=== PATIENT | male | born 1930 | race Caucasian/White ===

== ENCOUNTER 2016-12-08 14:00 | Inpatient (IN) ==
[2016-12-08] MEDS ORDERED: ONDANSETRON ODT 4 MG TABLET PO STA (14:39)
[2016-12-08 15:16] LABS: Basophils % 0.1 % (0.0-0.8); Hematocrit 50.2 VOL% (42.0-52.0); Hemoglobin 17.5 GM/DL (14.0-18.0); Immature Granulocytes % 0.7 %; Immature Granulocytes Absolute 0.17 #; Lymphocytes # 1.1 10*3/uL (1.4-4.0); Lymphocytes % 4.9 % (21.2-54.2); Mean Corpuscular HGB Conc 34.9 GM/DL (32-36); Mean Corpuscular Hemoglobin 34 PG (27-34); Mean Corpuscular Volume 97.7 FL (87-102); Mean Platelet Volume 11.1 FL (9.6-12.0); Monocytes % 4.2 % (1.7-12.7); Neutrophils % 90.1 % (38.7-73.9); Platelet Count 176 T/CUMM (130-400); Red Blood Count 5.14 MC/CUMM (3.8-5.5); Red Cell Distribution Width 13.7 % (9.3-17.3); White Blood Count 23.3 T/CUMM (4-12)
[2016-12-08] MEDS ORDERED: ONDANSETRON ODT 4 MG TABLET PO ONE (15:18)
[2016-12-08 15:37] LABS: Albumin 4.3 G/DL (3.4-5.0); Bilirubin,Total 1.1 MG/DL (0.2-1.0); Calcium 9.1 MG/DL (8.5-10.1); Osmolality,Calculated 293.8 MOS/KG (273-304); Potassium 4.2 MMOL/L (3.5-5.1); Total Protein 7.1 G/DL (6.4-8.3)
--- NOTE | 2016-12-08 15:38 | CT Report ---
History: Abdominal loading and vomiting Date: 12/08/2016 Study: CT abdomen and pelvis with IV contrast Comparison exam: July 18, 2014 Technique: Spiral CT sections were obtained from the lung bases to the pubic symphysis following 100 mL Omnipaque [address] exam was performed using one or more of the following dose reduction techniques: Automated exposure control, adjustment of the mA and/or kV according to patient size, or use of iterative reconstruction technique. CT abdomen: The partially visualized lung bases are clear. There is a small calcified granuloma in the right lower lobe. There is no pleural or pericardial effusion. There is disproportionate small bowel dilatation compatible with partial small bowel obstruction. The precise etiology for the small bowel obstruction is not seen, though the transition zone is in the right lower abdomen, likely in the jejunum. There is diverticulosis. The appendix is normal. There is some minimal diffuse fatty infiltration of the liver. The bile ducts, spleen, pancreas, and adrenal glands are unremarkable. There is bilateral renal excretion without hydronephrosis. There is no enhancing renal mass. The gallbladder is contracted. There is no aneurysm of the moderately calcified abdominal aorta. There is no obvious lymphadenopathy by short axis diameter criteria. CT pelvis: There is no pelvic mass or abnormal pelvic fluid collection. There is no pelvic lymphadenopathy by short axis diameter criteria. Impression: Partial small bowel obstruction PROCEDURE INTERPRETED AT [facility] DEPARTMENT OF RADIOLOGY Final Report Signed by: Dr. Princess De Los Santos
[2016-12-08] MEDS ORDERED: SODIUM CHLORIDE 0.9% 500 ML IV STA (15:46)
--- NOTE | 2016-12-08 15:48 | Emergency Department Note ---
Frandy Prater Hilary, am scribing for, and in the presence of, Armando Velasco MD 14:38. Rod Prater Phillip K, MD, personally performed the services described in this documentation, ascribed by Shasha Wise in my presence, and it is both accurate and complete 548 . Arrival - Arrival Chief Complaint: Nausea/Vomiting/Diarrhea Stated Complaint: n/v,possible dehydration sent by Dr ED Nursing Triage Note: Pt c/o nausea, vomiting, and abd distention since last night. States BM this am was norm. Mode of Arrival: Ambulatory Limitations: No Limitations Source: Patient, RN Notes Reviewed - History of Present Illness HPI Narrative: Pt is a 86 y/o female presenting to the ED with c/o nausea, vomiting and abdominal distention which onset yesterday. Pt confirms nausea, vomiting, and distended abdomen but denies abnormal stool, fever. Pt has a PMHx of HTN. No other complaints or problems stated in the ED. No other complaints or problems stated in the ED. Onset (ago): hour(s) Allergies/Adverse Reactions: Allergies Allergy/AdvReac Type Severity Reaction Status Date / Time No Known Allergies Allergy Verified 12/08/16 14:07 Review of System - Review of System 12 point system: reviewed and no additional remarkable complaints except as stated - Review of System Constitutional: Absent: fever Gastrointestinal: Present: nausea, vomiting. Absent: abdominal pain Medical,Surgical,& Family Hx - Medical History Cardio: History of: Hypertension - Social History Smoking Status: Never smoker Exam Vital Signs: Vital Signs Temperature 98.8 F 12/08/16 15:33 Pulse Rate 87 12/08/16 15:33 Respiratory Rate 20 12/08/16 15:33 Blood Pressure 151/79 12/08/16 15:33 O2 Sat by Pulse Oximetry 95 12/08/16 15:33 - General General appearance: alert, in no apparent distress - Head Head exam: Present: atraumatic, normocephalic - Eye Eye exam: Present: normal appearance, PERRL, EOMI - ENT ENT exam: Present: mucous membranes moist, TM's normal bilaterally - Neck Neck exam: Present: full ROM, trachea midline. Absent: tenderness - Chest Chest inspection: Present: symmetric chest wall rise. Absent: tenderness - Respiratory Respiratory exam: Present: normal lung sounds bilaterally. Absent: respiratory distress - Cardiovascular Cardiovascular exam: Present: regular rate, normal rhythm, normal heart sounds. Absent: murmur, rubs, gallop - Abdominal Exam Abdominal exam: Present: soft, distention, normal bowel sounds. Absent: tenderness - Extremities Exam Extremities exam: Present: full ROM. Absent: tenderness - Back Exam Back exam: Present: full ROM. Absent: tenderness - Neurological Exam Neurological exam: Present: alert, oriented X3, CN II-XII intact. Absent: motor sensory deficit - Psychiatric Psychiatric exam: Present: normal affect, normal mood - Skin Skin exam: Present: warm, dry, intact, normal color. Absent: rash Course Course Narrative: Patient discussed with Dr. Brito who will evaluate in the ED. Results - Labs CBC & BMP: 12/08/16 15:02 12/08/16 15:02 Lab Results: I have reviewed the patients labs - Diagnostic Findings Procedure: CT Abdomen and Pelvis: report reviewed by me (Partial small bowel obstruction) Disposition Clinical Impression: Partial small bowel obstruction Case discussed with: patient, patient's family Disposition: Still a Patient Condition: Guarded Additional Instructions: Admit to Dr. Brito
[2016-12-08] MEDS ORDERED: LACTATED RINGERS 1,000 ML IV ONE (16:40)
--- NOTE | 2016-12-08 16:45 | General Surg History&Physical ---
Assessment and Plan (1) Partial small bowel obstruction Status: Acute Assessment and plan: It is unclear whether this patient has some sort of segmental ileus or a partial small bowel obstruction. There is no discrete transition point. There are no concerning features of the CT scan itself. The patient's abdomen is not very distended and he does have some hypoactive bowel sounds. He is not tender at all. His white blood cell count is 23,000 which is concerning but he is completely stable and has no indications for acute operative intervention tonight. This is concerning if this is a small bowel obstruction because this patient has never had abdominal surgery and may need to have a laparoscopy to reveal the underlying cause of this, as scar tissue is not as likely with no history of surgery. For now I am not totally convinced this is a bowel obstruction and we will watch him with an NG tube because of a large amount of vomiting is having and he is actually still nauseated in the ER. He will be resuscitated NG tube in place. We will get a urinalysis because of his high white count to ensure that a urinary tract infection is not resulting in a ileus pattern. If there is any question in the morning after an additional abdominal x-ray we will get a small bowel series to further evaluate with oral contrast. Current Visit: Yes History of Present Illness Chief complaint: Small bowel obstruction versus ileus History of present illness: Mr. Scanlon is a 86 year old male with no past surgical history and a past medical history of hypertension who presents to the ER with nausea and vomiting with some mild abdominal pain that began earlier today. Patient has never had problems like this before. He came to the ER for evaluation. He has never had any abdominal surgery. He has had colonoscopy by Dr. Reid which showed no malignancy but he did have pandiverticulosis. The patient denies prior episodes of diverticulitis. The patient started having nausea and vomiting today and threw up multiple times dark green bilious appearing fluid. He is not having diarrhea. He had a small bowel movement this morning but has not passed gas as much as usual. He denies any other recent illness. Allergies Allergy/AdvReac Type Severity Reaction Status Date / Time No Known Allergies Allergy Verified 12/08/16 14:07 Medical,Surgical,& Family Hx - Medical History Cardio: History of: Hypertension - Social History Smoking Status: Never smoker Exam - Constitutional Vitals: Period Temp Pulse Resp BP Sys/Humphreys Pulse Ox Last 24 Hr 98.5 F-98.8 F 87-89 18-20 124-151/79-94 95-96 General appearance: normal weight, no acute distress - Head Head exam: Present: normal inspection, normocephalic - Eye Eye exam: Present: EOMI Pupils: Present: DEXTER - ENT ENT exam: Present: normal exam Mouth exam: Present: normal external inspection, normal voice - Neck Neck exam: Present: normal inspection, trachea midline - Respiratory Respiratory exam: Present: clear to auscultation bilaterally. Absent: accessory muscle use, chest wall tenderness - Cardiovascular Cardiovascular exam: Present: RRR. Absent: systolic murmur, tachycardia - GI/Abdominal GI/Abdominal exam: Present: hypoactive bowel sounds, soft. Absent: distended, tenderness, rebound - Extremities Exam Extremities exam: Present: normal inspection, normal capillary refill - Back Exam Back exam: Present: normal inspection - Neurological Exam Neurological exam: Present: alert, oriented X3 Speech: Present: normal - Skin Skin exam: Present: normal color, warm - Constitutional Constitutional: Present: as per HPI - EENT Nose, mouth and throat: Present: as per HPI - Cardiovascular Cardiovascular: Present: as per HPI - Respiratory Respiratory: Present: as per HPI - Gastrointestinal Gastrointestinal: Present: as per HPI - Genitourinary Genitourinary: Present: as per HPI - Musculoskeletal Musculoskeletal: Present: as per HPI - Neurological Neurological: Present: as per HPI - Endocrine Endocrine: Present: as per HPI Hematologic/Lymphatic: Present: as per HPI Results - Labs CBC & BMP: 12/08/16 15:02 12/08/16 15:02 - Diagnostic Findings Procedure: CT Abdomen and Pelvis: image reviewed by me, report reviewed by me ( There is dilation of the stomach and proximal intestine and decompression of the distal bowel. There is some air and stool in the colon especially in the right colon. There is diverticulosis. There is no evidence of malignancy.)
--- NOTE | 2016-12-08 17:53 | XRay Report ---
XR chest 1V Indication: NG tube placement. Comparison: None. Technique: Portable AP chest was performed. Findings: NG tube terminates just within the stomach. The last sidehole lies adjacent to the GE junction. Impression: 1. NG tube placement as detailed. 12/08/2016 5:45 PM PROCEDURE INTERPRETED AT [facility] DEPARTMENT OF RADIOLOGY Final Report Signed by: Dr. Troy Gale
[2016-12-08] MEDS ORDERED: ONDANSETRON 4 MG/2 ML VIAL IV PRN (18:59)
[2016-12-08] MEDS ORDERED: HYDROmorphone 2 MG/1 ML VIAL IV PRN (18:59)
[2016-12-08] MEDS ORDERED: PROMETHAZINE 25 MG/1 ML VIAL IM PRN (18:59)
[2016-12-08 19:04] LABS: Eosinophils 1 % (0-10); Lymphocytes 4 % (20-55); Platelet Estimate Normal; Segmented Neutrophils 93 % (50-85); Total Cells Counted 100
[2016-12-08] MEDS: LACTATED RINGERS 1,000 ML IV SCH (20:56)
[2016-12-09] MEDS: LACTATED RINGERS 1,000 ML IV SCH (06:29)
[2016-12-09 08:15] LABS: Basophils % 0.3 % (0.0-0.8); Eosinophils # 0.1 10*3/uL (0.0-0.87); Eosinophils % 0.4 % (0.00-10.9); Hematocrit 43.3 VOL% (42.0-52.0); Hemoglobin 14.8 GM/DL (14.0-18.0); Immature Granulocytes % 0.8 %; Immature Granulocytes Absolute 0.11 #; Lymphocytes # 1.9 10*3/uL (1.4-4.0); Lymphocytes % 13.6 % (21.2-54.2); Mean Corpuscular HGB Conc 34.2 GM/DL (32-36); Mean Corpuscular Hemoglobin 34 PG (27-34); Mean Corpuscular Volume 98.2 FL (87-102); Mean Platelet Volume 10.8 FL (9.6-12.0); Monocytes # 0.8 10*3/uL (0.11-0.8); Monocytes % 5.5 % (1.7-12.7); Neutrophils % 79.4 % (38.7-73.9); Platelet Count 140 T/CUMM (130-400); Red Blood Count 4.41 MC/CUMM (3.8-5.5); Red Cell Distribution Width 13.4 % (9.3-17.3); White Blood Count 13.8 T/CUMM (4-12)
[2016-12-09 08:39] LABS: Calcium 7.9 MG/DL (8.5-10.1)
[2016-12-09 08:40] LABS: Osmolality,Calculated 287.8 MOS/KG (273-304); Potassium 3.4 MMOL/L (3.5-5.1)
[2016-12-09] MEDS: PANTOPRAZOLE 40 MG VIAL IV SCH (08:48)
[2016-12-09] MEDS ORDERED: traMADol 50 MG TABLET PO PRN ×2 (09:34)
--- NOTE | 2016-12-09 09:37 | General Surgery Progress Note ---
Assessment and Plan (1) Partial small bowel obstruction Status: Acute Assessment and plan: The patient is passing gas. I am not completely convinced he has a bowel obstruction but we will get a small bowel series to further evaluate. Will use Gastrografin for both diagnostic and therapeutic effects. Continue NG tube for now. Current Visit: Yes Subjective Patient reports: Present: no new complaints, feels better, flatus, no bowel movement, afebrile Narrative: The patient had a low-grade temperature overnight. His urinalysis was not done. He is passing gas but has not had a bowel movement yet. He has minimal NG tube output. Exam - Constitutional Vitals: Period Temp Pulse Resp BP Sys/Humphreys Pulse Ox Last 24 Hr 97.9 F-100.1 F 82-90 16-20 124-152/78-94 93-97 General appearance: normal weight, no acute distress - Head Head exam: Present: normal inspection, normocephalic - Eye Eye exam: Present: EOMI Pupils: Present: DEXTER - ENT ENT exam: Present: normal exam Mouth exam: Present: normal external inspection, normal voice - Neck Neck exam: Present: normal inspection, trachea midline - Respiratory Respiratory exam: Present: clear to auscultation bilaterally. Absent: accessory muscle use, chest wall tenderness - Cardiovascular Cardiovascular exam: Present: RRR. Absent: systolic murmur, tachycardia - GI/Abdominal GI/Abdominal exam: Present: hypoactive bowel sounds, soft. Absent: distended, tenderness, rebound - Extremities Exam Extremities exam: Present: normal inspection, normal capillary refill - Back Exam Back exam: Present: normal inspection - Neurological Exam Neurological exam: Present: alert, oriented X3 Speech: Present: normal - Skin Skin exam: Present: normal color, warm Results - Labs CBC & BMP: 12/09/16 08:06 12/09/16 08:06 Specialty Discharge - Follow Up or Referrals Follow up with: Ruddy Brito MD [Physician] -
[2016-12-09] MEDS ORDERED: CYANOCOBALAMIN 1000 MCG/1 ML VIAL IM SCH (10:00)
--- NOTE | 2016-12-09 11:51 | Fluoroscopy Report ---
Exam: FL small bowel series Date: 12/09/2016 7:28 AM Indication: Small bowel obstruction Comparison: Abdomen pelvis CT scan 12/08/2016 Findings: Curtain Supervisor image was obtained with 11 images with 1 minute of fluoroscopy time. Contrast Gastrografin was administered through a tube in the stomach. Images were obtained with spot images. The examination reveals passage of contrast into the stomach in the small intestine with some slight dilated loops of bowel present. No obvious obstruction present of the small intestine with contrast passing into the colon. Moderate amount of fecal debris is present in the rectal ampulla. Impression: 1. No definite bowel obstruction present. 2. Mild constipation obstipation was moderate stool in the rectal ampulla. PROCEDURE INTERPRETED AT [facility] DEPARTMENT OF RADIOLOGY Final Report Signed by: Dr. Lan Gomez
[2016-12-09] MEDS: DEXT 5% NACL 0.45% KCL 40 MEQ 40 MEQ/1,000 ML BAG IV SCH (12:15)
[2016-12-09] MEDS: ENOXAPARIN 40 MG/0.4 ML SYRINGE SUBCUT SCH (12:16)
[2016-12-09] MEDS: POTASSIUM CHLORIDE RIDER 10 MEQ in PREMIX 1 EACH IV SCH ×4 (12:16→17:19)
[2016-12-09] MEDS: OMEGA 3 ACID ETHYL ESTERS 1 GM CAPSULE PO SCH ×2 (12:16→21:50)
[2016-12-09] MEDS: CHOLECALCIFEROL 1,000 UNIT TABLET PO SCH ×2 (12:16→21:50)
[2016-12-09] MEDS: FAMOTIDINE 20 MG TABLET PO SCH ×2 (12:16→21:50)
[2016-12-09] MEDS ORDERED: PRAMIPEXOLE 0.25 MG TABLET PO SCH (18:00)
[2016-12-09 18:57] LABS: Apearance,Urine CLEAR (Clear); Bilirubin,Urine Negative (Negative); Blood, Urine Moderate mg/dL (Negative); Glucose,Urine (UA) Negative (Negative); Ketones,Urine Negative (Negative); Nitrite,Urine Negative (Negative); Protein,Urine Negative; Urine Color Yellow (Yellow); Urine Specific Gravity 1.019 (1.001-1.035)
[2016-12-09 18:58] LABS: Bacteria,Urine Occasional /HPF (Few); Mucus,Urine Occasional /LPF (Occasional); RBC,Urine 26 /HPF (0-4); Squamous Epithelial Cell,Urine Occasional /HPF (0-10); Urine Urobilinogen < 2.0 EU/DL (0.2-1.0); WBC,Urine 5 /HPF (0-6)
[2016-12-09] MEDS ORDERED: ASPIRIN EC 81 MG TABLET PO SCH (19:00)
[2016-12-09] MEDS ORDERED: SIMVASTATIN 20 MG TABLET PO SCH (21:00)
[2016-12-09] MEDS: DOCUSATE SODIUM 100 MG CAPSULE PO SCH (21:50)
[2016-12-10] MEDS: DEXT 5% NACL 0.45% KCL 40 MEQ 40 MEQ/1,000 ML BAG IV SCH ×2 (00:08→10:22)
[2016-12-10 06:16] LABS: Basophils # 0.1 10*3/uL (0.0-0.2); Basophils % 0.7 % (0.0-0.8); Eosinophils # 0.1 10*3/uL (0.0-0.87); Hematocrit 39.8 VOL% (42.0-52.0); Hemoglobin 13.5 GM/DL (14.0-18.0); Immature Granulocytes % 0.4 %; Immature Granulocytes Absolute 0.04 #; Lymphocytes # 1.9 10*3/uL (1.4-4.0); Lymphocytes % 21.1 % (21.2-54.2); Mean Corpuscular HGB Conc 33.9 GM/DL (32-36); Mean Corpuscular Hemoglobin 34 PG (27-34); Mean Platelet Volume 11.8 FL (9.6-12.0); Monocytes # 0.6 10*3/uL (0.11-0.8); Monocytes % 6.9 % (1.7-12.7); Neutrophils # 6.3 10*3/uL (1.4-7.4); Neutrophils % 69.9 % (38.7-73.9); Platelet Count 130 T/CUMM (130-400); Red Blood Count 4.02 MC/CUMM (3.8-5.5); Red Cell Distribution Width 13.2 % (9.3-17.3)
[2016-12-10 06:48] LABS: Calcium 8.1 MG/DL (8.5-10.1); Magnesium 2.4 MG/DL (1.8-2.4); Osmolality,Calculated 286.8 MOS/KG (273-304); Potassium 3.9 MMOL/L (3.5-5.1)
[2016-12-10 08:22] VITALS: BP 158/77
--- NOTE | 2016-12-10 08:26 | Discharge Summary ---
Hospital Course - Hospital Course Hospital Course: This patient was admitted with ileus versus bowel obstruction. He never really had a complete bowel obstruction was always passing gas and having bowel movements but the CT scan showed some intermittent narrowing decompressed small bowel but then it dilated up again in the colon had stool in it. My opinion this is not completely convincing for bowel obstruction. Small bowel series the next day showed normal anatomy with no bowel obstruction present and the patient began having a lot of bowel movements afterwards. His diet was advanced and he was discharged home. His leukocytosis resolved. I will see him back in clinic in 2 weeks with a repeat x-ray to make sure there are no underlying problems that we need to address. If this happens again he was instructed to come back to the ER or call us immediately. Diagnosis - Discharge Diagnosis (1) Partial small bowel obstruction Status: Acute Specialty Discharge - Follow Up or Referrals Follow up with: Ruddy Brito MD [Physician] - Discharge Plan - Discharge Data Disposition: Disch To Home/Self Care Condition at Discharge: Stable Discharge Diet: advance to your usual diet Activity: resume usual activities as tolerated Hygiene: may shower Weight Bearing at Discharge: weight bear as tolerated Driving: no restrictions Contact your physician if you experience:: fever over 101, Difficulty voiding, Redness or swelling, Nausea/Vomiting, Shortness of breath, Bleeding, pain uncontrolled by pain medications - Discharge Medications Continue Tramadol HCl [Tramadol Tab] 100 mg PO BEDTIME PRN PRN Reason: Pain Tramadol HCl [Tramadol Tab] 50 mg PO QAM PRN PRN Reason: Pain Cholecalciferol (Vitamin D3) [Vitamin D3 Chew Tab] 1,000 unit PO BID raNITIdine HCl [Ranitidine HCl] 150 mg PO BID Simvastatin 20 mg PO BEDTIME Gabapentin Cap/Tab [Neurontin Cap/Tab] 600 mg PO QAM Aspirin EC Tab 81 mg PO QPM Cetirizine HCl 10 mg PO QAM Pramipexole Di-HCl [Pramipexole Dihydrochloride] 0.5 mg PO 1800 Cyanocobalamin (Vitamin B-12) [Cyanocobalamin Injection] 1,000 mcg IJ Q30D [place]-3/Dha/Epa/Fish Oil [Fish Oil 1,000 mg Softgel] 1 each PO BID Amlodipine Besylate 5 mg PO BEDTIME Cyanocobalamin (Vitamin B-12) [Vitamin B-12] 1,000 mcg PO QAM Docusate Sodium 100 mg PO BID - Follow Up or Referral Follow Up: Ruddy Brito MD [Physician] - 2 Weeks (please order abdominal xray 2 views prior to visit) - Forms/Instructions Instructions: Bowel Obstruction (DC), Bowel Obstruction (GEN) Exam - Constitutional Vitals: Period Temp Pulse Resp BP Sys/Humphreys Pulse Ox Last 24 Hr 96.4 F-99.5 F 54-91 16-18 137-162/63-89 93-97 General appearance: normal weight, no acute distress - Head Head exam: Present: normal inspection, normocephalic - Eye Eye exam: Present: EOMI Pupils: Present: DEXTER - ENT ENT exam: Present: normal exam - Neck Neck exam: Present: normal inspection - Respiratory Respiratory exam: Present: clear to auscultation bilaterally. Absent: accessory muscle use, chest wall tenderness - Cardiovascular Cardiovascular exam: Present: regular rate and rhythm. Absent: systolic murmur , tachycardia - GI/Abdominal GI/Abdominal exam: Present: tenderness (Expected postoperative tenderness), soft. Absent: guarding, rebound - Extremities Exam Extremities exam: Present: normal inspection, normal capillary refill - Back Exam Back exam: Present: normal inspection - Neurological Exam Neurological exam: Present: alert, oriented X3 - Psychiatric Psychiatric exam: Present: normal affect, normal mood - Skin Skin exam: Present: normal color, warm Discharge Results Labs on day of discharge: Labs from last 24 hours 12/10/16 12/10/16 12/09/16 05:25 05:24 12:05 WBC 9.0 D RBC 4.02 Hgb 13.5 L Hct 39.8 L MCV 99.0 MCH 34 MCHC 33.9 RDW 13.2 Plt Count 130 MPV 11.8 Neut % (Auto) 69.9 Lymph % (Auto) 21.1 L [place]nn % (Auto) 6.9 Eos % (Auto) 1.0 Baso % (Auto) 0.7 Neut # (Auto) 6.3 Lymph # (Auto) 1.9 Glynn # (Auto) 0.6 Eos # (Auto) 0.1 Baso # (Auto) 0.1 Immature Gran % 0.4 Nucleated RBC % 0.0 Immature Gran # 0.04 Nucleated RBCs # 0.00 Sodium 144 Potassium 3.9 Chloride 111 H Carbon Dioxide 23 Anion Gap 13.9 BUN 14 Creatinine 0.80 GFR Calculation 90 BUN/Creatinine Ratio 17.00 Glucose 97 Calculated Osmolality 286.8 Calcium 8.1 L Magnesium 2.4 Urine Color Yellow Urine Appearance Clear Urine pH 7.0 Ur Specific [place] 1.019 Urine Protein Negative Urine Glucose (UA) Negative Urine Ketones Negative Urine Blood Moderate Urine Nitrate Negative Urine Bilirubin Negative Urine Urobilinogen < 2.0 H Urine Leukocytes Negative Urine RBC 26 Urine WBC 5 Ur Squamous Epith Cells Occasional Urine Bacteria Occasional Urine Mucus Occasional Ur Culture Indicated? Not indicated 12/09/16 08:06 WBC RBC Hgb Hct MCV MCH MCHC RDW Plt Count MPV Neut % (Auto) Lymph % (Auto) [place] % (Auto) Eos % (Auto) Baso % (Auto) Neut # (Auto) Lymph # (Auto) [place]nn # (Auto) Eos # (Auto) Baso # (Auto) Immature Gran % Nucleated RBC % Immature Gran # Nucleated RBCs # Sodium 144 Potassium 3.4 L Chloride 110 H Carbon Dioxide 27 Anion Gap 10.4 BUN 17 Creatinine 0.80 GFR Calculation 91 BUN/Creatinine Ratio 21.00 H Glucose 93 Calculated Osmolality 287.8 Calcium 7.9 L Magnesium Urine Color Urine Appearance Urine pH Ur Specific [place] Urine Protein Urine Glucose (UA) Urine Ketones Urine Blood Urine Nitrate Urine Bilirubin Urine Urobilinogen Urine Leukocytes Urine RBC Urine WBC Ur Squamous Epith Cells Urine Bacteria Urine Mucus Ur Culture Indicated? DS: Provider Date of admission: 12/08/16 16:38 Primary care physician: Fabrice Young Jr., Attending physician on admission: Ruddy Brito MD Discharging clinician: Ruddy Brito MD Expected date of discharge: 12/10/16
[2016-12-10] MEDS ORDERED: CETIRIZINE 10 MG TABLET PO SCH (09:00)
[2016-12-10] MEDS ORDERED: GABAPENTIN 600 MG TABLET PO SCH (09:00)
[2016-12-10] MEDS ORDERED: CYANOCOBALAMIN 500 MCG TABLET PO SCH (09:00)
[2016-12-10] MEDS: OMEGA 3 ACID ETHYL ESTERS 1 GM CAPSULE PO SCH (10:14)
[2016-12-10] MEDS: CHOLECALCIFEROL 1,000 UNIT TABLET PO SCH (10:14)
[2016-12-10] MEDS: FAMOTIDINE 20 MG TABLET PO SCH (10:16)
[2016-12-10] MEDS: DOCUSATE SODIUM 100 MG CAPSULE PO SCH (10:16)
[2016-12-10] MEDS: PANTOPRAZOLE 40 MG VIAL IV SCH (10:17)
[2016-12-10] MEDS: ENOXAPARIN 40 MG/0.4 ML SYRINGE SUBCUT SCH (10:17)
[2016-12-10] MEDS ORDERED: amLODIPine 5 MG TABLET PO SCH (21:00)
== END 2016-12-10 10:56 | disposition home or self-care (01) | DRG 390 ==
LOC: N.ED 14:00 → N.EDINP 16:38 → N.3E 17:16
PROVIDERS: ADMIT Surgery; ATTEND Surgery